=== PATIENT | female | born 1950 | race Caucasian/White ===

== ENCOUNTER → 2023-05-22 08:55 | Outpatient (BNVA) | payer MEDICARE, OTHER, SELFPAY | PROVIDERS: PCP Internal Medicine; Visit Provider Internal Medicine Cardiovascular Disease | DX: I10 Essential (primary) hypertension (principal) | CPT/HCPCS: 93005; 99202 ==

== ENCOUNTER → 2023-05-26 07:56 | Outpatient (REF) | payer MEDICARE, OTHER, SELFPAY ==
--- NOTE | 2023-05-26 08:01 | CA_ITS ---
Transthoracic Echocardiogram Patient (Last, First, Middle): Rakel Estrada, Gender: Female Date of : 1950 Age: 73 Procedure Date: 05/26/2023 Procedure Type: Transthoracic Echocardiogram Location: OP Height: 162.56 cm Weight: 74.84 kg BSA: 1.80 m2 Heart Rate: bpm BP: 138 / 75 mmHg Media Relations Specialist: DANIEL Referring MD: David Bailey MD Shop Tailor: David Bailey MD Symptoms: I10 - Essential (primary) hypertension Study Quality: Adequate ECG Rhythm: Sinus Conclusions: - 1. Normal LV systolic function with mild LVH with impaired relaxation filling pattern 2. Normal cardiac valvular Doppler 3. Normal RV systolic pressure 4. No pericardial effusion Findings Left Ventricle Normal left ventricular size and systolic function. There is mildly increased left ventricular wall thickness. The visually estimated ejection fraction is between 55-60%. Spectral Doppler is indicative of an impaired relaxation filling pattern. E/E prime ratio is between 8 and 15 consistent with indeterminate filling pressures. Evidence suggests grade I (mild) diastolic dysfunction. Right Ventricle Normal right ventricular cavity size and systolic function. Atria The left atrium is likely dilated. There is no evidence of interatrial shunt. The right atrium is normal in size. Aortic Valve Normal aortic valve structure and function. There is no aortic valve stenosis. There is no aortic valve regurgitation. Mitral Valve Normal mitral valve structure and function. There is trace mitral valve regurgitation. There is no mitral valve stenosis. Pulmonic Valve The pulmonic valve is likely normal. There is trace pulmonic valve regurgitation. Tricuspid Valve Normal tricuspid valve structure. There is trace tricuspid valve regurgitation. The right ventricular systolic pressure is normal. The right ventricular systolic pressure is 32 mmHg. Normal right atrial pressure. There is no evidence of pulmonary hypertension. Great Vessels All visible segments of the aorta are normal in size. The pulmonary artery was not well visualized. Venous The inferior vena cava is normal in size and collapses greater than 50% with inspiration. Pericardium/Pleural There is no evidence of pericardial effusion. Prior Study Comparison No prior study available for comparison. Measurements 2D Linear Measurements IVSd: 1.20 0.6-0.9/0.6-1.0 cm LVIDd: 4.50 3.9-5.3/4.2-5.9 cm LVIDd Index: 2.50 2.4-3.2/2.2-3.1 cm/m2 LVIDs: 3.00 2.0-3.6 cm LVPWd: 1.20 0.7-1.1 cm Ao Root: 2.80 2.1-3.5 cm LA Diam: 4.00 2.7-3.8/3.0-4.0 cm LAIDs Index: 2.22 1.5-2.3 cm/m2 LV Mass: 246.88 67-162/88-224 g LV Mass Index: 137.16 43-95/49-115 g/m2 LVOT Diam: 2.00 3.0+(-)1.3 cm 2D Systolic Function EF 4C: 63.80 >55% EF 2C: 51.90 >55% EF BiP: 58.80 >55% Mitral Valve MV Pk E: 0.55 MV PK A: 0.81 MV Decel Time: 310.00 E/A: 0.70 E'Lateral: 5.87 E'Medial: 4.03 E/E' Med: 13.50 E/E' Lat: 9.30 PHT: 91.00 MVA PHT: 2.42 Decel Pepin: 1.76 Aortic Valve AoV Pk Boris: 1.33 AoV Mn Boris: 0.84 AoV VTI: 0.28 AoV Pk Grad: 7.00 Aov Mn Grad: 3.00 JAZLYN Cont.VTI: 2.06 LVOT LVOT Pk Boris: 0.94 LVOT Mn Boris: 0.58 LVOT VTI: 0.18 LVOT Pk Grad: 4.00 LVOT Mn Grad: 2.00 LVOT Diam: 2.00 LVOT Area: 3.14 Diastolic Function MV Pk E: 0.55 MV Pk A: 0.81 E/A: 0.70 E'Medial: 4.03 E/E' Med: 13.50 E' Laterial: 5.87 E/E' Lat: 9.30 Right Ventricle TAPSE (mm): 17.00 TVS' Boris: 9.00 Tricuspid Valve TR Pk Boris: 2.69 TR Pk Grad: 29.00 RA Press: 3.00 RVSP: 32.00 Great Vessels Aorta Ao Root-2D: 2.80 2.0-3.7 cm Ao Asc: 2.90 2.1-3.4 cm Pulmonary Valve PV Pk Boris: 1.22 Peak PV Grad: 6.00 Updated in Other Vendor System with Status of Final David Bailey MD electronically signed on 05/27/2023 3:02:20 PM with status of Final
[2023-05-26 10:30] LABS: Cholesterol 194 mg/dL; HDL Cholesterol 62 mg/dL; LDL Cholesterol Calculated 120 mg/dl; Triglycerides 64 mg/dL
== END ==
LOC: HO.CARD 07:56
PROVIDERS: PCP Nurse Practitioner; Visit Provider Internal Medicine Cardiovascular Disease
DX: I10 Essential (primary) hypertension (principal); R94.31 Abnormal electrocardiogram [ECG] [EKG]
CPT/HCPCS: 36415; 80061; 93306

== ENCOUNTER → 2023-05-26 08:01 | Outpatient (BNV) | payer MEDICARE, OTHER, SELFPAY | PROVIDERS: PCP Nurse Practitioner; Visit Provider Internal Medicine Cardiovascular Disease | DX: I51.9 Heart disease, unspecified (principal); I10 Essential (primary) hypertension | CPT/HCPCS: 93306 ==

== ENCOUNTER 2023-10-14 11:00 | Outpatient (REF) | payer MEDICARE, OTHER, SELFPAY ==
[2023-10-14 12:37] LABS: Cholesterol 140 mg/dL (<200); HDL Cholesterol 61 mg/dL (>40); LDL Cholesterol Calculated 71 mg/dL (<100); Triglycerides 44 mg/dL (<150)
== END 2023-10-14 11:01 | disposition home or self-care (01) ==
LOC: HO.LAB 11:00
PROVIDERS: PCP Nurse Practitioner; Visit Provider Internal Medicine Cardiovascular Disease
DX: I10 Essential (primary) hypertension (principal); I25.10 Atherosclerotic heart disease of native coronary artery without angina pectoris
CPT/HCPCS: 36415; 80061